=== PATIENT | female | born 1965 | race Two or more races ===

== ENCOUNTER → 2021-12-27 09:24 | Outpatient (CLI) | payer OTHER | END | disposition home or self-care (01) | LOC: LAB 09:24 | PROVIDERS: ATTEND Internal Medicine Hematology & Oncology | DX: D72.818 Other decreased white blood cell count (principal); I10 Essential (primary) hypertension; E78.2 Mixed hyperlipidemia; E04.9 Nontoxic goiter, unspecified; D50.8 Other iron deficiency anemias; R79.9 Abnormal finding of blood chemistry, unspecified; E03.8 Other specified hypothyroidism ==

== ENCOUNTER 2022-03-04 09:27 | Emergency (ER) | payer OTHER ==
[~2022-03-04] VITALS: Ht 157.5 cm; Wt 70.8 kg
[2022-03-04] MEDS ORDERED: MICARDIS40 MG (09:53)
[2022-03-04] MEDS ORDERED: CYMBALTA20 MG (09:54)
[2022-03-04] MEDS ORDERED: CLONAZEPAM0.5 MG (09:54)
== END 2022-03-04 12:37 | disposition home or self-care (01) ==
LOC: ER 09:27
DX: S99.921A Unspecified injury of right foot, initial encounter (principal)

== ENCOUNTER 2022-03-26 08:10 | Outpatient (CLI) | payer OTHER ==
[~2022-03-26 08:10] MED LIST: CLONAZEPAM0.5 MG; CYMBALTA20 MG; MICARDIS40 MG
== END 2022-03-26 08:11 | disposition home or self-care (01) ==
LOC: LAB 08:10
PROVIDERS: ATTEND Internal Medicine Hematology & Oncology
DX: D50.8 Other iron deficiency anemias (principal); R79.9 Abnormal finding of blood chemistry, unspecified; I10 Essential (primary) hypertension; R74.02 Elevation of levels of lactic acid dehydrogenase [LDH]; K76.89 Other specified diseases of liver; E03.8 Other specified hypothyroidism; D51.8 Other vitamin B12 deficiency anemias; D72.818 Other decreased white blood cell count; E78.2 Mixed hyperlipidemia; E04.9 Nontoxic goiter, unspecified; I73.00 Raynaud's syndrome without gangrene